=== PATIENT | female | born 1945 | race Caucasian/White ===

== ENCOUNTER 2016-07-23 21:07 | Observation (INO) | payer MEDICARE, BC ==
--- NOTE | ~2016-07-23 | HP ---
History And Physical [facility] [id number] [place]. [address] NAME: DIAMOND MAJANO : 41 STATUS : ADM Swati PAT#: [id number] AGE: 70 ADM/REG DATE : 07/23/16 MR#: [id number] REPORT SERV DATE: 07/24/16 DICTATED BY: BRIE CASTILLO DATE: 07/24/16 REPORT STATUS : Draft TRANSCRIBED BY: JAMIE DATE: 07/24/16 DATE OF ADMISSION: 07/23/2016 [facility] REPRESENTATIVE: Mariajose Beck M.D. CHIEF COMPLAINT: Heart racing. HISTORY OF PRESENT ILLNESS: A very pleasant, somewhat anxious 70-year-old white female with known history of CAD by catheterization in 01/2014, which identified calcific mild-to- moderate CAD and severe ostial first diagonal lesion that was a small caliber vessel with an EF of 60% to 65%. Medical management and risk reduction were recommended at that time. The patient also has a history of PAF, status post atrial fibrillation ablation by Dr. Fajardo in 05/2015. The patient presents describing episodic heart racing since 07/15 with difficulty focusing her eyes and episodes of bilateral arm heaviness. She also reports fatigue and loss of energy, and she reports multiple short runs of heart racing described by the patient as SVT, atrial fibrillation, and VT at times. On 07/20, she had a long episode of her heart racing, she took an additional dose of her beta-josseline, and the episode resolved after approximately 90 minutes. She reports associated shortness of breath or nausea with these episodes. Denies any chest pain, pressure or tightness, diaphoresis, dizziness, or belching. On 07/23, she had another episode of her heart racing with minimal activity throughout her house. Again, she lost focus with her vision, she sat down in a recliner, vomited on herself, and her daughter and son witnessed a brief loss of consciousness. With this episode as well, she felt the bilateral arm heaviness. The patient denies any personal history of myocardial infarction, stroke, DVT, or pulmonary embolus. The patient denies any recent fever or chills. Palpitations over the last 10 days. No other syncopal episode reported. Denies PND or orthopnea. PAST MEDICAL HISTORY: 1. CAD. a. 80% ostial first diagonal small caliber vessel with calcific mild-to- moderate CAD with an EF of 60% to 65%, 01/2014. 2. PAF, status post ablation, 05/2015. 3. LBBB (chronic). 4. Hypertension. 5. Dyslipidemia, intolerant to statins. 6. Positive family history for early CAD and stroke. 7. Ongoing tobacco abuse. 8. Migraines. PAST SURGICAL HISTORY: Hysterectomy and cataract repair. SOCIAL HISTORY: She is , with three children. She is a retired RN. Does not have a structured exercise routine, but reports being active. Smokes one pack per day for 40 plus years. Denies alcohol or illicits. History And Physical [address] [place]. [address] NAME: DIAMOND MAJANO : 41 STATUS : ADM Swati PAT#: [id number] AGE: 70 ADM/REG DATE : 07/23/16 MR#: [id number] REPORT SERV DATE: 07/24/16 DICTATED BY: BRIE CASTILLO DATE: 07/24/16 REPORT STATUS : Draft TRANSCRIBED BY: JAMIE DATE: 07/24/16 FAMILY HISTORY: Mother of a stroke following an endarterectomy at 76. Father of a heart attack at 84. A brother with end-stage renal disease, of a heart attack at 70. A sister of a stroke at 64. A sister with strokes in her late 60s remains alive at 76. REVIEW OF SYSTEMS: A 14-point review of systems performed, significant for HPI. Denies diabetes. Otherwise, complete review of systems obtained and negative. ALLERGIES: SULFA, GI UPSET. DILTIAZEM, FACIAL SWELLING. HOME MEDICATIONS: Tylenol p.r.n., Maxzide 25 mg daily, MegaRed daily, metoprolol tartrate 25 mg twice daily, Diovan 80 mg daily and Jantoven 5.5 Saturday, Saturday, and Saturday and 5 mg Saturday, , Saturday, and Saturday. PHYSICAL EXAMINATION: VITAL SIGNS: Bilateral blood pressures on arrival, right 89/52, left 87/50, this morning 143/65; pulse 64; respirations 18; temperature 97.7; O2 saturation 95% on room air. Height 5 feet 3 inches, weight 144 pounds, BMI 25.25. GENERAL: Cooperative, in no apparent distress. HEENT: Pupils 2 mm. Sclera nonicteric. Nares patent. Moist mucous membranes. No xanthelasma. NECK: Trachea midline. No thyromegaly. No JVD. No bruits. LYMPH: No cervical lymphadenopathy. No supraclavicular lymphadenopathy. RESPIRATORY: Unlabored respirations. Breath sounds clear bilaterally to posterior auscultation. No wheezes or rhonchi. CARDIOVASCULAR: A 2/6 murmur at base, right sternal border. Extremities without edema. Pulses 2+ bilaterally. ABDOMEN: Soft, nontender, nondistended. Normal bowel sounds auscultated throughout. No organomegaly. SKIN: Warm, dry extremities. No pallor or cyanosis. PSYCHIATRIC: Appropriate affect. Alert, oriented x3. LABORATORY DATA: Troponins less than 0.02, 0.74, 1.30. Potassium 4.1 (previously 3.1), BUN 21, creatinine 0.93, glucose 143, magnesium 2.0. BNP 111. TSH 1.070, free T4 of 1.22. WBC 9.9, hemoglobin 15.5, hematocrit 42.5, platelet count 251,000. PT 29.7, INR of 2.9. EKG, sinus rhythm, LBBB, PRWP, LAD, ST and T-wave abnormalities noted. MATTHEW, 05/30/2015: Mild MR. Mildly enlarged left atrium. LV function normal with no regional wall motion abnormality. Cath, 01/2014 (Dr. Huntley): Calcific [id number] CAD. Severe ostial first diagonal lesion of small caliber vessel. EF 60% to 65%. Medical management recommended with risk reduction. In 05/2015, atrial fibrillation ablation by Dr. Fajardo. History And Physical [address] [address] NAME: DIAMOND MAJANO : 41 STATUS : ADM Swati PAT#: [id number] AGE: 70 ADM/REG DATE : 07/23/16 MR#: [id number] REPORT SERV DATE: 07/24/16 DICTATED BY: BRIE CASTILLO DATE: 07/24/16 REPORT STATUS : Draft TRANSCRIBED BY: MODBean DATE: 07/24/16 ASSESSMENT AND PLAN: 1. Atrial fibrillation versus supraventricular tachycardia, now reverted to sinus rhythm with left bundle-branch block, which is chronic. TSH 1.070. Consider Holter at discharge. The patient will be sent for echo and ultrasound of the carotids given presentation with inability to focus and brief loss of consciousness. 2. Inability to focus and brief loss of consciousness. Check echo and ultrasound of carotids. 3. Bilateral arm pain and fatigue. The patient declines further cardiac testing, and the patient has known [id number] disease. We will check a third troponin and share that with the [facility] [place] milk of lime slaker. Third troponin is 1.30, up from 0.74. Further recommendations forthcoming. 4. Murmur. We will check an echo. 5. Hypertension. Monitor blood pressure and continue home medications. 6. Dyslipidemia, intolerant to statins. Diet and exercise choices discussed. 7. Ongoing tobacco abuse. Counseled regarding cessation. Plan of care discussed with [facility] [place] physician, Dr. Fabio Helm, who agrees. We will update Dr. Helm with a third troponin. Further recommendations forthcoming. SORIN/JAMIE Brie Castillo, MSN, YOGA TE[employer]ER-BC / [id number] CC: Brie Castillo, JOSE MARIA, YOGA TEACHER-BC DO Mariajose Beatty M.D.
[2016-07-23 20:37] LABS: BASOPHILS 0.3 %; BASOPHILS ABSOLUTE 0.03 10/3/uL (0.0-0.16); EOSINOPHILS 1.1 %; EOSINOPHILS ABSOLUTE 0.11 10/3/uL (0.0-0.53); ER CBC TAT 0 Hrs 09 Mins; HEMATOCRIT 42.5 % (36.0-48.0); HEMOGLOBIN 15.5 g/dL (12.0-16.0); IMMATURE GRANULOCYTES 0.1 %; IMMATURE GRANULOCYTES ABSOLUTE 0.01 10/3/uL (0.0-0.11); LYMPHOCYTES 33.2 %; LYMPHOCYTES ABSOLUTE 3.27 10/3/uL (0.67-4.30); MEAN CORPUSCULAR HEMOGLOB 32.6 pg (26.0-34.0); MEAN PLATELET VOLUME 9.7 fL (9.2-13.0); MONOCYTES 7.1 %; NEUTROPHILS 58.2 %; NEUTROPHILS ABSOLUTE 5.74 10/3/uL (2.02-8.40); PLATELET COUNT 251 10/3/uL (150-400); RBC DISTRIBUTION WIDTH 12.5 % (12.0-16.0); RED CELL COUNT 4.76 10/6/uL (4.0-5.6); WHITE BLOOD CELLS 9.9 10/3/uL (4.5-10.5)
[2016-07-23 20:38] LABS: MANUAL DIFF NO %; MEAN CORPUS HGB CONC 36.5 g/dL (32.0-36.0); MEAN CORPUSCULAR VOLUME 89.3 fL (80-100)
[2016-07-23 20:47] LABS: INTERNATIONAL NORMAL RATI 2.8 UNITS (-); PARTIAL THROMBO TIME 47.8 SEC (22.5-37.2); PROTIME (NOT ORD) 29.2 SEC (12.0-14.5)
[2016-07-23 20:52] LABS: CALCIUM, SERUM 8.6 MG/DL (8.5-10.4); CHEST PAIN PROFILE TAT 0 Hrs 24 Mins; CHLORIDE, SERUM 96 MMOL/L (96-112); CO2 (CARBON DIOXIDE) 25 MMOL/L (24-34); CREATININE 0.93 MG/DL (0.55-1.02); GFR AFRICAN AMERICAN 71 ML/MIN (>=60); GFR NON AFRICAN AMERICAN 61 ML/MIN (>=60); SODIUM, SERUM 134 MMOL/L (135-148); TROPONIN I <0.02 NG/ML (<0.05)
[2016-07-23 20:54] LABS: BUN (BLOOD UREA NITROGEN) 21 MG/DL (6-23); GLUCOSE, SERUM 143 MG/DL (60-99); POTASSIUM, SERUM 3.1 MMOL/L (3.5-5.3)
[~2016-07-23 21:07] MED LIST: ASA5GR PO; ASAB PO; BETAPACE80 PO; DIOV80 PO; ELIQUIS 5 MG TAB5 MG PO; FISH-EPA1000 MG PO; HAIR PO; LIPITOR20 PO; LIPITOR40 PO; MAX25 PO; MULTIPLE VIT PO; MVI PO; PLAVIX PO; PRADAXA150 MG PO; SKIN PO; T PO; ZOCOR40 PO; [UNRECOGNIZED DRUG - OTHER] PO
[2016-07-23] MEDS ORDERED: DIOV80 PO (21:25)
[2016-07-23] MEDS ORDERED: MAX25 PO (21:25)
[2016-07-23] MEDS ORDERED: T PO (21:25)
[2016-07-23] MEDS ORDERED: MEGA RED OMEGA PO (21:26)
[2016-07-23] MEDS ORDERED: LOP25 PO (21:26)
[2016-07-23] MEDS ORDERED: JANTOVEN1 MG PO (21:27)
[2016-07-23] MEDS ORDERED: JANTOVEN5 MG PO (21:27)
[2016-07-24 03:04] LABS: INTERNATIONAL NORMAL RATI 2.9 UNITS (-); PROTIME (NOT ORD) 29.7 SEC (12.0-14.5)
[2016-07-24 03:16] LABS: DIRECT BILIRUBIN 0.1 MG/DL (0.0-0.4); FREE T4 1.22 NG/DL (0.76-1.46); INDIRECT BILIRUBIN(NOT ORDER) 0.4 MG/DL (0.1-0.9); TOTAL BILIRUBIN 0.5 MG/DL (0-1.2)
[2016-07-24 03:24] LABS: TROPONIN I 0.74 NG/ML (<0.05); ULTRASENSITIVE TSH 1.07 MCIU/ML (0.358-3.740)
== END 2016-07-24 15:10 | disposition home or self-care (01) ==
LOC: ER 21:07 → CDU1 21:18
PROVIDERS: Clinical Nurse Specialist; Emergency Medicine
DX: I48.0 Paroxysmal atrial fibrillation (principal); I25.10 Atherosclerotic heart disease of native coronary artery without angina pectoris; I10 Essential (primary) hypertension; E78.5 Hyperlipidemia, unspecified; F17.210 Nicotine dependence, cigarettes, uncomplicated; G43.909 Migraine, unspecified, not intractable, without status migrainosus; Z88.2 Allergy status to sulfonamides; Z88.8 Allergy status to other drugs, medicaments and biological substances; Z88.1 Allergy status to other antibiotic agents; Z79.899 Other long term (current) drug therapy; Z79.01 Long term (current) use of anticoagulants; Z90.710 Acquired absence of both cervix and uterus; Z98.890 Other specified postprocedural states
CPT/HCPCS: 71010; 80048; 80076; 83735; 83880; 84132; 84439; 84443; 84484; 85025; 85610; 85730; 93005; 93225; 93306; 93880; 96374; 96375; 99285; A9270-GY; G0378; J2405